=== PATIENT | female | born 1960 | race Caucasian/White ===

== ENCOUNTER 2019-01-26 09:36 | Inpatient (IN) | payer MEDICAID ==
[~2019-01-26] VITALS: Ht 157.5 cm; Wt 41.0 kg
[2019-01-26] MEDS ORDERED: HALOPERIDOL 5 MG TABLET PO PRN (10:30)
[2019-01-26] MEDS ORDERED: DiphenhydrAMINE HCL 50 MG/ML VIAL IM ONE (10:45)
[2019-01-26] MEDS ORDERED: HALOPERIDOL LACTATE 5 MG/ML VIAL IM ONE (10:45)
[2019-01-26] MEDS ORDERED: LORazepam 2 MG/ML VIAL ONE (10:45)
[2019-01-26] MEDS ORDERED: LORazepam 2 MG/ML VIAL IM ONE (10:45)
[2019-01-26] MEDS ORDERED: DiphenhydrAMINE HCL 50 MG/ML VIAL ONE (10:45)
[2019-01-26] MEDS ORDERED: HALOPERIDOL LACTATE 5 MG/ML VIAL ONE (10:45)
[2019-01-26 11:02] VITALS: BP 102/60
[2019-01-26] MEDS ORDERED: PNEUMOCOCCAL VACCINE POLYVALENT 0.5 ML VIAL [PPSV23] IM ONE (11:30)
[2019-01-26 13:04] VITALS: BP 71/44
[2019-01-26 13:10] VITALS: BP 72/44
[2019-01-26 13:19] VITALS: BP 82/48
[2019-01-27 01:51] VITALS: BP 99/52
[2019-01-27 08:01] VITALS: BP 108/71
[2019-01-28 03:24] VITALS: BP 117/67
[2019-01-28 08:17] VITALS: BP 121/69
[2019-01-28 16:02] VITALS: BP 132/90
[2019-01-29 00:23] VITALS: BP 125/65
[2019-01-29 08:06] VITALS: BP 141/74
[2019-01-29 08:31] LABS: BASOPHILS % (AUTO) 0.3 % (0.0-2.0); HEMATOCRIT 38.4 % (36-46); HEMOGLOBIN 12.3 g/dL (12.0-16.0); LYMPHOCYTES # (AUTO) 1.2 K/uL (1.0-4.8); LYMPHOCYTES % (AUTO) 29.5 % (22.0-44.0); MEAN CORPUSCULAR HEMOGLOBIN 26.9 pg (26.0-34.0); MEAN CORPUSCULAR VOLUME 84 fL (80-100); MONOCYTES # (AUTO) 0.4 K/uL (0.1-1.0); MONOCYTES % (AUTO) 8.9 % (2.0-9.0); NEUTROPHILS # (AUTO) 2.3 K/uL (1.8-7.7); NEUTROPHILS % (AUTO) 57.3 % (40.0-70.0); PLATELET COUNT (AUTO) 360 K/uL (150-450); RED BLOOD CELL COUNT(AUTO) 4.57 MIL/uL (4.00-5.20); RED CELL DISTRIBUTION WIDTH 13.9 % (11.5-14.5)
[2019-01-29] MEDS: LORazepam 2 MG TABLET PO PRN (08:51)
[2019-01-29] MEDS: ACETAMINOPHEN 325 MG TABLET PO PRN (08:52)
[2019-01-29 16:01] VITALS: BP 119/75
[2019-01-30 00:53] VITALS: BP 141/67
[2019-01-30] MEDS: LORazepam 2 MG TABLET PO PRN ×2 (01:55→16:05)
[2019-01-30 08:06] VITALS: BP 128/77
[2019-01-30 08:11] VITALS: BP 128/77
[2019-01-30 16:00] VITALS: BP 119/69
[2019-01-30] MEDS: OLANZapine 10 MG TABLET PO SCH (20:35)
[2019-01-31 05:56] VITALS: BP 110/83
[2019-01-31 08:17] VITALS: BP 121/66
[2019-01-31 16:02] VITALS: BP 118/75
[2019-01-31] MEDS: LORazepam 2 MG TABLET PO PRN (16:34)
[2019-01-31] MEDS: OLANZapine 10 MG TABLET PO SCH (20:03)
[2019-02-01 05:20] VITALS: BP 123/81
[2019-02-01 08:15] VITALS: BP 125/74
[2019-02-01 08:38] LABS: BASOPHILS % (AUTO) 0.3 % (0.0-2.0); EOSINOPHILS % (AUTO) 5.5 % (1.0-6.0); HEMATOCRIT 36.7 % (36-46); HEMOGLOBIN 11.5 g/dL (12.0-16.0); LYMPHOCYTES # (AUTO) 1.2 K/uL (1.0-4.8); MEAN CORPUSCULAR HEMOGLOBIN 26.4 pg (26.0-34.0); MEAN CORPUSCULAR HGB CONC 31.4 G/dL (31.0-37.0); MEAN CORPUSCULAR VOLUME 84 fL (80-100); MONOCYTES # (AUTO) 0.3 K/uL (0.1-1.0); MONOCYTES % (AUTO) 9.7 % (2.0-9.0); NEUTROPHILS # (AUTO) 1.7 K/uL (1.8-7.7); NEUTROPHILS % (AUTO) 49.5 % (40.0-70.0); PLATELET COUNT (AUTO) 380 K/uL (150-450); RED BLOOD CELL COUNT(AUTO) 4.38 MIL/uL (4.00-5.20)
[2019-02-01 08:56] LABS: ANION GAP 6 mmol/L (8-16); CALCIUM, TOTAL 9.5 mg/dL (8.8-10.5); CARBON DIOXIDE 29 mmol/L (22-29); CHLORIDE 106 mmol/L (98-107); CREATININE 0.71 mg/dL (0.60-1.30); GLOMERULAR FILTR. RATE CALC > 60 mL/min (>60); GLUCOSE,RANDOM 67 mg/dL (70-110); POTASSIUM 4.4 mmol/L (3.5-5.1); SODIUM SERUM 141 mmol/L (136-145); UREA NITROGEN, BLOOD 24 mg/dL (7-18)
[2019-02-01] MEDS: BENZOCAINE/MENTHOL LOZENGE PO PRN (14:01)
[2019-02-01 16:37] VITALS: BP 106/67
[2019-02-01] MEDS: OLANZapine 10 MG TABLET PO SCH (20:48)
[2019-02-02 06:10] VITALS: BP 119/66
[2019-02-02 08:08] VITALS: BP 131/75
[2019-02-02 15:48] VITALS: BP 130/63
[2019-02-02 16:00] VITALS: BP 130/63
[2019-02-02] MEDS: OLANZapine 7.5 MG TABLET PO SCH (20:23)
[2019-02-02] MEDS: LORazepam 2 MG TABLET PO PRN (20:23)
[2019-02-03 06:17] VITALS: BP 110/45
[2019-02-03 08:13] VITALS: BP 111/72
[2019-02-03 16:16] VITALS: BP 103/64
[2019-02-03] MEDS: BENZOCAINE/MENTHOL LOZENGE PO PRN (16:34)
[2019-02-03] MEDS: LORazepam 2 MG TABLET PO PRN (16:34)
[2019-02-03] MEDS: OLANZapine 7.5 MG TABLET PO SCH (20:04)
[2019-02-04 00:31] VITALS: BP 110/68
[2019-02-04 08:06] VITALS: BP 110/63
[2019-02-04 16:05] VITALS: BP 110/60
[2019-02-04] MEDS: OLANZapine 7.5 MG TABLET PO SCH (20:20)
[2019-02-05 00:29] VITALS: BP 110/67
[2019-02-05 08:08] VITALS: BP 115/72
[2019-02-05] MEDS: NICOTINE 14 MG/24 HOUR PATCH TD SCH (09:00)
[2019-02-05 16:35] VITALS: BP 121/65
[2019-02-05] MEDS: OLANZapine 7.5 MG TABLET PO SCH (20:33)
[2019-02-06 00:33] VITALS: BP 121/67
[2019-02-06] MEDS: LORazepam 2 MG TABLET PO PRN (00:35)
[2019-02-06] MEDS: ACETAMINOPHEN 325 MG TABLET PO PRN ×2 (00:35→17:57)
[2019-02-06 07:14] LABS: AMPHET/METH SCREEN,URINE NEGATIVE (NEGATIVE); BARBITURATE SCREEN, URINE NEGATIVE (NEGATIVE); BENZODIAZEPINES SCREEN,URINE NEGATIVE (NEGATIVE); CANNABINOID SCREEN,URINE NEGATIVE (NEGATIVE); COCAINE SCREEN,URINE NEGATIVE (NEGATIVE); METHADONE SCREEN, URINE NEGATIVE (NEGATIVE); OPIATE SCREEN,URINE NEGATIVE (NEGATIVE)
[2019-02-06 07:17] LABS: PHENCYCLIDINE SCREEN,URINE NEGATIVE (NEGATIVE)
[2019-02-06 07:25] LABS: APPEARANCE,URINE CLOUDY (CLEAR); BILIRUBIN,URINE NEGATIVE (NEGATIVE); GLUCOSE, URINE (UA) NEGATIVE (NEGATIVE); KETONES,URINE NEGATIVE (NEGATIVE); LEUKOCYTE ESTERASE ,URINE SMALL (NEGATIVE); NITRATE,URINE NEGATIVE (NEGATIVE); OCCULT BLOOD,URINE NEGATIVE (NEGATIVE); PROTEIN,URINE NEGATIVE (NEGATIVE); UROBILINOGEN,URINE 0.2 mg/dL (<=1.0)
[2019-02-06 07:48] LABS: BACTERIA,URINE Rare /HPF (None Seen); RBC,URINE 0-2 /HPF (0-2); SQUAMOUS EPITHELIAL CELL,UR Rare /LPF (None Seen)
[2019-02-06] MEDS: NICOTINE 14 MG/24 HOUR PATCH TD SCH (08:59)
[2019-02-06 09:53] VITALS: BP 102/79
[2019-02-06 16:01] VITALS: BP 117/75
[2019-02-06 17:54] VITALS: BP 108/70
[2019-02-06] MEDS: OLANZapine 7.5 MG TABLET PO SCH (20:14)
[2019-02-07 00:24] VITALS: BP 111/70
[2019-02-07 08:15] VITALS: BP 109/69
[2019-02-07] MEDS: NICOTINE 14 MG/24 HOUR PATCH TD SCH (09:00)
[2019-02-07] MEDS: ACETAMINOPHEN 325 MG TABLET PO PRN ×2 (09:19→16:26)
[2019-02-07 16:02] VITALS: BP 101/55
[2019-02-07] MEDS: OLANZapine 7.5 MG TABLET PO SCH (20:03)
[2019-02-08 00:45] VITALS: BP 116/67
[2019-02-08] MEDS: ACETAMINOPHEN 325 MG TABLET PO PRN (00:51)
[2019-02-08 08:10] VITALS: BP 111/62
[2019-02-08] MEDS ORDERED: OLAN7.5T2 PO (08:19)
[2019-02-08] MEDS: NICOTINE 14 MG/24 HOUR PATCH TD SCH (08:53)
== END 2019-02-08 10:30 | disposition home or self-care (01) | DRG 750 ==
LOC: B3A 10:36
PROVIDERS: ADMIT Psychiatry & Neurology Psychiatry; ATTEND Psychiatry & Neurology Psychiatry
DX: F20.0 Paranoid schizophrenia (principal); E11.9 Type 2 diabetes mellitus without complications; I10 Essential (primary) hypertension; F15.90 Other stimulant use, unspecified, uncomplicated; F17.200 Nicotine dependence, unspecified, uncomplicated
CPT/HCPCS: 80307; 87086; J1200; J1630; J2060